=== PATIENT | female | born 1930 | race Two or more races ===

== ENCOUNTER 2016-07-15 19:02 | Emergency (ER) | payer OTHER ==
[~2016-07-15] VITALS: Ht 152.4 cm; Wt 65.8 kg
[2016-07-15 19:02] VITALS: BP 168/104
[2016-07-15] MEDS ORDERED: Vancomycin 1 GM in NS 275 ML IV ONE (21:30)
[2016-07-15] MEDS ORDERED: Ampicillin/Sulbactam Sod 3 GM in NS 110 ML IV SCH (21:30)
--- NOTE | 2016-07-15 21:38 | Emergency Room Report ---
History of Present Illness General Chief Complaint: Pain Source: Patient, EMS Present Illness HPI 85 YO F with 3 months bilateral, L> R pain, swelling, redness. Has not seen a doctor or been treated for this previously. Denies history of DM, CHF. Denies fever/chills. Denies DVT/PE. Not on ABx currently. Allergies: Coded Allergies: No Known Allergies (Unverified , 07/15/16) Patient History Past Medical History: HTN Past Surgical History: none Pertinent Family History: none Social History: Denies: alcohol use, drug use, smoking Now: No Immunizations: UTD Reviewed Nursing Documentation: PMH: Agreed, PSxH: Agreed Nursing Documentation-PMH Past Medical History: No History, Except For Hx Cardiac Problems: Yes - A fib, hypothroidism, DVT, Hyperlipidemia, shingles Hx Hypertension: Yes Hx Diabetes: Yes Review of Systems All Other Systems: negative except mentioned in HPI Physical Exam Vital Signs Date Time Temp Pulse Resp B/P Pulse Ox O2 Delivery O2 Flow Rate FiO2 07/15/16 18:55 97.0 81 16 193/117 99 Sp02 EP Interpretation: reviewed, abnormal General Appearance: normal inspection, well appearing, no apparent distress, alert, GCS 15, non-toxic Head: normocephalic, atraumatic Eyes: bilateral eye EOMI, bilateral eye PERRL ENT: normal ENT inspection, hearing grossly normal, normal voice Neck: normal inspection, full range of motion, supple, no bony tend Respiratory: normal inspection, lungs clear, normal breath sounds, no respiratory distress, no retraction, no wheezing Cardiovascular #1: regular rate, rhythm, no edema Gastrointestinal: normal inspection, normal bowel sounds, non tender, soft, no guarding, no hernia Genitourinary: no CVA tenderness Musculoskeletal: normal inspection, back normal, normal range of motion, non- tender, no calf tenderness, Dennise's Sign negative Neurologic: normal inspection, alert, oriented x3, responsive, poured 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 Cellulitis +/- DVT Abx given Labs: No leuks. H&H stable. Mild ALEX. Elevated glucose although patient denies DM Endorsed to Dr Enrique at [facility] for transfer Sono bilateral lower ext pending at time of endorsement. Endorsed to Dr Eugene to followup sono Rhythm Strip Diag. Results EP Interpretation: yes Rate: 74 Rhythm: NSR, no PVC's, no ectopy Chest X-Ray Diagnostic Results EP Interpretation: Yes Findings: no consolidation, no effusion, no pneumothorax, no acute cardiopulmonary disease Number of Views: 1 Last Vital Signs Date Time Temp Pulse Resp B/P Pulse Ox O2 Delivery O2 Flow Rate FiO2 07/15/16 19:02 97.0 89 16 168/104 99 Status: improved Disposition: ADMITTED INPATIENT Condition: Critical JEREMIAH PEREZ M.D. Jul 15, 2016 21:38
[2016-07-15 21:45] VITALS: BP 171/102
[2016-07-15] MEDS ORDERED: Unasyn 3gm Inj ONE (21:55)
[2016-07-15] MEDS ORDERED: Vancomycin 1gm inj IVPB ONE (21:55)
[2016-07-15 22:11] LABS: EOSINOPHILS % (AUTO) 1.6 % (0.0-3.0); LYMPHOCYTES % (AUTO) 32.1 % (20.0-45.0); MEAN CORPUSCULAR HEMOGLOBIN 27.5 PG (27.0-31.0); MEAN CORPUSCULAR HGB CONC 31.3 G/DL (32.0-36.0); MEAN CORPUSCULAR VOLUME 88 FL (80-99); MEAN PLATELET VOLUME 7.9 FL (6.5-10.1); MONOCYTES % (AUTO) 7.4 % (1.0-10.0); PLATELET COUNT 235 K/UL (150-450); RED BLOOD COUNT 3.73 M/UL (4.20-5.40); RED CELL DISTRIBUTION WIDTH 13.2 % (11.6-14.8); WHITE BLOOD COUNT 10.4 K/UL (4.8-10.8)
[2016-07-15 22:31] LABS: ALANINE AMINOTRANSFERASE 10 U/L (3-33); ALBUMIN/GLOBULIN RATIO 1.2 (1.0-2.7); ANION GAP 15 (5-15); ASPARTATE AMINO TRANSFERASE 14 U/L (5-40); CALCIUM 9.1 mg/dL (8.6-10.2); CARBON DIOXIDE 27 mEQ/L (20-30); CHLORIDE 95 mEQ/L (98-107); CREATININE 1.2 mg/dL (0.5-0.9); HEMOLYSIS 8; POTASSIUM 4.6 mEQ/L (3.4-4.9); SODIUM 137 mEQ/L (135-145); TOTAL PROTEIN 6.6 g/dL (6.6-8.7)
[2016-07-15 23:26] VITALS: BP 162/99
[2016-07-15] MEDS ORDERED: ZESTRIL10 M1 ORAL (23:55)
[2016-07-15] MEDS ORDERED: VITAMIN C500 M1 ORAL (23:55)
[2016-07-15] MEDS ORDERED: SYNTHROID88 MCG ORAL (23:55)
[2016-07-15] MEDS ORDERED: PRILOSEC10 M1 ORAL (23:55)
[2016-07-15] MEDS ORDERED: ZYRTEC10 MG ORAL (23:55)
[2016-07-15] MEDS ORDERED: XARELTO10 MG ORAL (23:55)
[2016-07-15] MEDS ORDERED: TOPROL XL50 MG ORAL (23:55)
[2016-07-15] MEDS ORDERED: MIRTAZAPINE30 MG ORAL (23:55)
[2016-07-15] MEDS ORDERED: ATORVASTATIN CA10 MG ORAL (23:55)
[2016-07-15] MEDS ORDERED: NEURONTIN100 MG ORAL (23:55)
[2016-07-15] MEDS ORDERED: MAGNESIUM400 M1 PO (23:55)
[2016-07-15] MEDS ORDERED: GLUCOPHAGE500 MG ORAL (23:55)
[2016-07-16 01:04] VITALS: BP 156/71
[2016-07-16 01:10] VITALS: BP 162/72
--- NOTE | 2016-07-16 12:48 | Diagnostic Imaging Report ---
Indication: Dyspnea Comparison: None A single view chest radiograph was obtained. Findings: No definite infiltrate or pulmonary vascular congestion identified. The heart is enlarged. The aorta is mildly enlarged consistent with atherosclerotic vascular disease. The bones are osteopenic. Impression: No acute disease
--- NOTE | 2016-08-04 14:16 | Cardiology Report ---
APPROVED REPORT EKG Measurement Heart [id number] [id number] Sinus rhythm with premature atrial complexes Left axis deviation Minimal voltage criteria for LVH, may be normal variant Septal infarct, age undetermined Abnormal ECG
== END 2016-07-16 01:10 | disposition short-term general hospital (02) ==
LOC: EDBD 19:02 → EMR 21:40
DX: M79.89 Other specified soft tissue disorders (principal); N17.9 Acute kidney failure, unspecified; L03.116 Cellulitis of left lower limb; L03.115 Cellulitis of right lower limb; L02.416 Cutaneous abscess of left lower limb; L02.415 Cutaneous abscess of right lower limb; E11.65 Type 2 diabetes mellitus with hyperglycemia; I48.91 Unspecified atrial fibrillation; E78.5 Hyperlipidemia, unspecified; E03.9 Hypothyroidism, unspecified; Z86.718 Personal history of other venous thrombosis and embolism
CPT/HCPCS: 36415; 71010; 80053; 85025; 87040; 93005; 99285; J0295; J3370; J7050